=== PATIENT | male | born 1960 | race Caucasian/White ===

== ENCOUNTER → 2017-09-30 16:27 | Outpatient (CLI) | payer BC, SELFPAY ==
[2017-09-30 18:37] LABS: Anion Gap 11 (5-15); BUN 7 mg/dL (7-18); BUN/Creat Ratio 9.3 RATIO (10-20); Chloride 95 mmol/L (98-107); Cholesterol 201 mg/dL (200); Creatinine, Serum 0.76 mg/dL (0.70-1.30); EST Glomerular Filtration Rate 113 mL/min (>60); Est Glom Filt Rate - Afr Amer 137 mL/min (>60); Glucose 91 mg/dL (74-106); High Density Lipoprotein 80 mg/dL; Potassium 3.8 mmol/L (3.5-5.1); Sodium Level 129 mmol/L (136-145); Triglycerides 63 mg/dL; Very Low Density Lipoprotein 13 mg/dL (5-40)
== END ==
PROVIDERS: Family Provider Family Medicine; PCP Family Medicine; Visit Provider Family Medicine
DX: Z00.00 Encounter for general adult medical examination without abnormal findings (principal); Z12.5 Encounter for screening for malignant neoplasm of prostate
CPT/HCPCS: 36415; 80048; 80061; 84153; G0103

== ENCOUNTER → 2017-10-05 11:33 | Outpatient (CLI) | payer BC, SELFPAY ==
[2017-10-05 15:34] LABS: ALB/GLOB Ratio 1.3 RATIO (0.9-2.4); AST(SGOT) 29 U/L (15-37); Alanine Aminotransfer ALT/SGPT 30 U/L (16-61); Albumin, Serum 4.2 g/dL (3.2-5.0); Alkaline Phosphatase 63 U/L (45-117); Anion Gap 10 (5-15); BUN 9 mg/dL (7-18); BUN/Creat Ratio 10.4 RATIO (10-20); Calcium,Total 8.5 mg/dL (8.5-10.1); Chloride 95 mmol/L (98-107); Creatinine, Serum 0.86 mg/dL (0.70-1.30); EST Glomerular Filtration Rate 97 mL/min (>60); Est Glom Filt Rate - Afr Amer 117 mL/min (>60); Globulin 3.2 g/dL (2.2-4.2); Glucose 101 mg/dL (74-106); Potassium 4.1 mmol/L (3.5-5.1); Protein, Total 7.4 g/dL (6.4-8.2); Sodium Level 130 mmol/L (136-145)
[2017-10-05 20:58] LABS: Osmolality, Serum 270 mOsm/KG (275-295)
== END ==
PROVIDERS: Family Provider Family Medicine; PCP Family Medicine; Visit Provider Family Medicine
DX: E87.1 Hypo-osmolality and hyponatremia (principal)
CPT/HCPCS: 36415; 80053; 83930; 84443

== ENCOUNTER → 2017-10-13 10:02 | Outpatient (CLI) | payer BC, SELFPAY ==
[2017-10-13 13:05] LABS: Urine Sodium 95 mmol/L (Not Establ.)
[2017-10-13 13:14] LABS: Osmolality, Urine 405 mOsm/KG
== END ==
PROVIDERS: Family Provider Family Medicine; PCP Family Medicine; Visit Provider Family Medicine
DX: E87.1 Hypo-osmolality and hyponatremia (principal)
CPT/HCPCS: 83935; 84300

== ENCOUNTER → 2018-02-04 11:35 | Outpatient (CLI) | payer BC, SELFPAY ==
[2018-02-04 15:43] LABS: Anion Gap 7 (5-15); BUN 12 mg/dL (7-18); BUN/Creat Ratio 13.1 RATIO (10-20); Calcium,Total 8.6 mg/dL (8.5-10.1); Chloride 99 mmol/L (98-107); Creatinine, Serum 0.91 mg/dL (0.70-1.30); EST Glomerular Filtration Rate 91 mL/min (>60); Est Glom Filt Rate - Afr Amer 110 mL/min (>60); Glucose 99 mg/dL (74-106); Potassium 4.2 mmol/L (3.5-5.1); Sodium Level 132 mmol/L (136-145)
== END ==
PROVIDERS: Family Provider Family Medicine; PCP Family Medicine; Visit Provider Family Medicine
DX: E87.1 Hypo-osmolality and hyponatremia (principal)
CPT/HCPCS: 36415; 80048

== ENCOUNTER → 2018-03-07 11:27 | Outpatient (CLI) | payer BC, SELFPAY ==
[2018-03-07 15:42] LABS: Hematocrit 35.5 % (40-54); Hemoglobin 12.3 g/dl (13.0-16.5); Mean Corp Hgb Conc 34.6 g/gl (32-36); Mean Corpuscular Hgb 31.9 pg (27.0-32.0); Platelet Count 203 K/mm3 (150-450); RBC Distribution Width CV 12.3 % (11.6-14.6); RBC Distribution Width SD 41.3 fl (35.1-43.9); Red Blood Count 3.86 M/mm3 (4.6-6.2); White Blood Count 3.6 K/mm3 (4.4-11.0)
[2018-03-07 15:49] LABS: Scan Indicated on CBC? Y/N NO
[2018-03-07 16:05] LABS: Anion Gap 8 (5-15); BUN 9 mg/dL (7-18); BUN/Creat Ratio 11.1 RATIO (10-20); Calcium,Total 8.9 mg/dL (8.5-10.1); Chloride 98 mmol/L (98-107); Creatinine, Serum 0.81 mg/dL (0.70-1.30); EST Glomerular Filtration Rate 104 mL/min (>60); Est Glom Filt Rate - Afr Amer 126 mL/min (>60); Glucose 83 mg/dL (74-106); Potassium 4.2 mmol/L (3.5-5.1); Sodium Level 136 mmol/L (136-145)
[2018-03-07 16:09] LABS: Vitamin B12 231 pg/mL (211-911); Vitamin D,25 Hydroxy 20.4 ng/mL (29.95-100.01)
[2018-03-07 16:15] LABS: Osmolality, Serum 277 mOsm/KG (275-295)
== END ==
PROVIDERS: Family Provider Family Medicine; PCP Family Medicine; Visit Provider Family Medicine
DX: E87.1 Hypo-osmolality and hyponatremia (principal); R53.83 Other fatigue
CPT/HCPCS: 36415; 80048; 82306; 82607; 83930; 85027

== ENCOUNTER → 2022-04-28 | Outpatient (CLI) | payer BC, SELFPAY ==
--- NOTE | 2022-04-28 14:15 | RAD_ITS ---
STUDY: X-RAY - RIGHT SHOULDER REASON FOR EXAM: Male, 62 years old. Right shoulder pain. TECHNIQUE: 4 view(s) of the shoulder. COMPARISON: None. FINDINGS: There is mild degenerative arthrosis of the glenohumeral articulation. There is degenerative arthrosis of the acromioclavicular joint without inferior osseous spur formation. Normal acromion. Normal humeral head and visualized proximal humerus. The soft tissue structures are unremarkable. Normal visualized pulmonary apex. RAD/Shoulder min 2 Views IMPRESSION: Degenerative changes at the glenohumeral joint. Electronically Signed: Mehrdad Lynch MD at 15:36 EDT ,
== END | disposition home or self-care (01) ==
LOC: MTRAD 14:10
PROVIDERS: PCP Family Medicine; Referring Provider Family Medicine; Visit Provider Family Medicine
DX: M25.511 Pain in right shoulder (principal)
CPT/HCPCS: 73030

== ENCOUNTER → 2022-05-13 | Outpatient (CLI) | payer BC, SELFPAY ==
--- NOTE | 2022-05-13 07:12 | MRI_ITS ---
STUDY: MRI RIGHT SHOULDER REASON FOR EXAM: Right shoulder pain for 6 months. TECHNIQUE: Standardized fat and water weighted pulse sequences were obtained in all 3 orthogonal planes. COMPARISON: Radiographs 04/28/2022. FINDINGS: There is supraspinatus tendinosis and a full-thickness tear of the anterior supraspinatus tendon (T2 coronal images 15-17) measuring approximately 0.6 x 1.3 cm (length x width). There is infraspinatus tendinosis (T2 coronal images 9-11) without discrete tendon tear. There is attenuation of the subscapularis tendon (chronicity axial images 15, 16). Normal teres minor tendon. There is mild atrophy with mild partial fat replacement of the supraspinatus muscle (T2 axial images 6, 7). Normal infraspinatus muscle. There is atrophy with partial fat replacement of the subscapularis muscle (T2 axial image 14). There is atrophy with fat replacement of the teres minor muscle (T2 sagittal image 15). There is a small glenohumeral joint effusion. There is mild cystic change of the posterior aspect of the greater tuberosity. There is a tear with nonvisualization of the intracapsular long biceps tendon. There is degeneration of the superior labrum (proton-density coronal images 11, 12). Normal capsulo- ligamentous complex. There is acromioclavicular arthrosis without substantial undersurface osteophytes (T2 sagittal image 18). There is a Type II morphology (curved), with a neutral orientation. There is a small volume of subacromial-subdeltoid bursal fluid. There is thickening of the coracoacromial ligament (T2 sagittal image 14). There is atrophy with partial fat replacement of the deltoid muscle (T2 sagittal images 1-15). Normal trapezius muscle. MRI/Upper Ext Joint Only(Routine) IMPRESSION: Full-thickness tear and tendinosis of the supraspinatus tendon. Subscapularis tendinosis. Infraspinatus tendinosis. Atrophy of the supraspinatus, subscapularis, teres minor and deltoid muscles. Tear of the long biceps tendon. Degeneration of the superior labrum. Acromioclavicular arthrosis. Thickening of the coracoacromial ligament. Glenohumeral joint fluid communicating with the subacromial-subdeltoid bursa. Electronically Signed: Sylvester Vogt MD at 8:40 EDT ,
== END | disposition home or self-care (01) ==
PROVIDERS: PCP Family Medicine; Visit Provider Family Medicine
DX: M75.51 Bursitis of right shoulder (principal)
CPT/HCPCS: 73221

== ENCOUNTER 2022-07-20 11:21 | Outpatient (CLI) | payer BC, SELFPAY ==
[2022-07-20 13:08] LABS: ALB/GLOB Ratio 1.4 RATIO (0.9-2.4); AST(SGOT) 30 U/L (15-37); Alanine Aminotransfer ALT/SGPT 27 U/L (16-61); Albumin, Serum 4.2 g/dL (3.2-5.0); Alkaline Phosphatase 70 U/L (45-117); Anion Gap 6 (5-15); BUN 10 mg/dL (7-18); Calcium,Total 9.3 mg/dL (8.5-10.1); Chloride 95 mmol/L (98-107); Creatinine, Serum 0.71 mg/dL (0.70-1.30); EST Glomerular Filtration Rate 119 mL/min (>60); Est Glom Filt Rate - Afr Amer 144 mL/min (>60); Globulin 3.1 g/dL (2.2-4.2); Glucose 94 mg/dL (74-106); Potassium 4.2 mmol/L (3.5-5.1); Protein, Total 7.3 g/dL (6.4-8.2); Sodium Level 129 mmol/L (136-145)
== END 2022-07-20 23:59 | disposition home or self-care (01) ==
LOC: MFPLAB 11:25
PROVIDERS: PCP Family Medicine; Visit Provider Nurse Practitioner Family
DX: E87.1 Hypo-osmolality and hyponatremia (principal)
CPT/HCPCS: 36415; 80053

== ENCOUNTER → 2022-07-27 | Outpatient (CLI) | payer BC, SELFPAY ==
[2022-07-27 13:05] LABS: ALB/GLOB Ratio 1.3 RATIO (0.9-2.4); AST(SGOT) 21 U/L (15-37); Alanine Aminotransfer ALT/SGPT 21 U/L (16-61); Albumin, Serum 3.9 g/dL (3.2-5.0); Alkaline Phosphatase 66 U/L (45-117); Anion Gap 8 (5-15); BUN 9 mg/dL (7-18); BUN/Creat Ratio 11.5 RATIO (10-20); Calcium,Total 9.2 mg/dL (8.5-10.1); Chloride 97 mmol/L (98-107); Creatinine, Serum 0.78 mg/dL (0.70-1.30); EST Glomerular Filtration Rate 106 mL/min (>60); Est Glom Filt Rate - Afr Amer 129 mL/min (>60); Globulin 2.9 g/dL (2.2-4.2); Glucose 93 mg/dL (74-106); Potassium 4.1 mmol/L (3.5-5.1); Protein, Total 6.8 g/dL (6.4-8.2); Sodium Level 131 mmol/L (136-145)
== END | disposition home or self-care (01) ==
PROVIDERS: PCP Family Medicine; Visit Provider Nurse Practitioner Family
DX: E87.1 Hypo-osmolality and hyponatremia (principal)
CPT/HCPCS: 36415; 80053

== ENCOUNTER → 2022-08-03 | Outpatient (CLI) | payer BC, SELFPAY ==
[2022-08-03 10:21] LABS: ALB/GLOB Ratio 1.1 RATIO (0.9-2.4); AST(SGOT) 19 U/L (15-37); Alanine Aminotransfer ALT/SGPT 21 U/L (16-61); Albumin, Serum 3.9 g/dL (3.2-5.0); Alkaline Phosphatase 67 U/L (45-117); Anion Gap 9 (5-15); BUN 10 mg/dL (7-18); Calcium,Total 9.1 mg/dL (8.5-10.1); Chloride 98 mmol/L (98-107); Creatinine, Serum 0.83 mg/dL (0.70-1.30); EST Glomerular Filtration Rate 99 mL/min (>60); Est Glom Filt Rate - Afr Amer 120 mL/min (>60); Globulin 3.4 g/dL (2.2-4.2); Glucose 85 mg/dL (74-106); Potassium 4.2 mmol/L (3.5-5.1); Protein, Total 7.3 g/dL (6.4-8.2); Sodium Level 132 mmol/L (136-145)
== END | disposition home or self-care (01) ==
LOC: MFPLAB 08:29
PROVIDERS: PCP Family Medicine; Visit Provider Nurse Practitioner Family
DX: Z01.818 Encounter for other preprocedural examination (principal)
CPT/HCPCS: 36415; 80053

== ENCOUNTER → 2022-08-25 | Outpatient (CLI) | payer BC, SELFPAY ==
[2022-08-25 10:54] LABS: ALB/GLOB Ratio 1.2 RATIO (0.9-2.4); AST(SGOT) 22 U/L (15-37); Alanine Aminotransfer ALT/SGPT 26 U/L (16-61); Albumin, Serum 3.8 g/dL (3.2-5.0); Alkaline Phosphatase 76 U/L (45-117); Anion Gap 10 (5-15); BUN 10 mg/dL (7-18); BUN/Creat Ratio 13.3 RATIO (10-20); Chloride 99 mmol/L (98-107); Creatinine, Serum 0.75 mg/dL (0.70-1.30); EST Glomerular Filtration Rate 111 mL/min (>60); Est Glom Filt Rate - Afr Amer 135 mL/min (>60); Globulin 3.3 g/dL (2.2-4.2); Glucose 88 mg/dL (74-106); Protein, Total 7.1 g/dL (6.4-8.2); Sodium Level 134 mmol/L (136-145)
== END | disposition home or self-care (01) ==
LOC: MFPLAB 09:10
PROVIDERS: PCP Family Medicine; Visit Provider Nurse Practitioner Family
DX: R79.89 Other specified abnormal findings of blood chemistry (principal)
CPT/HCPCS: 36415; 80053

== ENCOUNTER → 2022-09-01 | Outpatient (CLI) | payer BC, SELFPAY ==
[2022-09-01 16:14] LABS: ALB/GLOB Ratio 1.2 RATIO (0.9-2.4); AST(SGOT) 21 U/L (15-37); Alanine Aminotransfer ALT/SGPT 26 U/L (16-61); Albumin, Serum 3.8 g/dL (3.2-5.0); Alkaline Phosphatase 73 U/L (45-117); BUN 11 mg/dL (7-18); BUN/Creat Ratio 13.5 RATIO (10-20); Calcium,Total 8.8 mg/dL (8.5-10.1); Creatinine, Serum 0.82 mg/dL (0.70-1.30); EST Glomerular Filtration Rate 102 mL/min (>60); Est Glom Filt Rate - Afr Amer 123 mL/min (>60); Globulin 3.3 g/dL (2.2-4.2); Glucose 82 mg/dL (74-106); Protein, Total 7.1 g/dL (6.4-8.2); Sodium Level 136 mmol/L (136-145)
[2022-09-01 16:15] LABS: Anion Gap 11 (5-15); Chloride 100 mmol/L (98-107)
== END | disposition home or self-care (01) ==
LOC: MTLAB 11:23
PROVIDERS: PCP Family Medicine; Referring Provider Nurse Practitioner Family; Visit Provider Nurse Practitioner Family
DX: R79.89 Other specified abnormal findings of blood chemistry (principal)
CPT/HCPCS: 36415; 80053

== ENCOUNTER 2022-09-02 06:07 | Day surgery (SDC) | payer BC, SELFPAY ==
[2022-07-16 14:57] LABS: Hematocrit 37.1 % (40-54); Mean Corpuscular Hgb 32.9 pg (27.0-32.0); Mean Corpuscular Volume 93.9 fL (80-94); Mean Platelet Vol. 8.3 fl (6.2-12.0); Platelet Count 253 K/mm3 (150-450); RBC Distribution Width CV 11.9 % (11.6-14.6); Red Blood Count 3.95 M/mm3 (4.6-6.2); White Blood Count 5.2 K/mm3 (4.4-11.0)
[2022-07-16 15:06] LABS: Partial Thromboplast Time 33.8 Seconds (24.1-36.2); Prothrombin Time (Protime)PT. 12.8 SECONDS (11.7-14.9)
[2022-07-16 15:30] LABS: Anion Gap 9 (5-15); BUN 10 mg/dL (7-18); BUN/Creat Ratio 12.9 RATIO (10-20); Calcium,Total 8.9 mg/dL (8.5-10.1); Chloride 92 mmol/L (98-107); Creatinine, Serum 0.78 mg/dL (0.70-1.30); EST Glomerular Filtration Rate 107 mL/min (>60); Est Glom Filt Rate - Afr Amer 130 mL/min (>60); Glucose 110 mg/dL (74-106); Potassium 4.3 mmol/L (3.5-5.1); Sodium Level 127 mmol/L (136-145)
[2022-07-16 15:34] LABS: AST(SGOT) 28 U/L (15-37); Alanine Aminotransfer ALT/SGPT 27 U/L (16-61); Albumin, Serum 3.9 g/dL (3.2-5.0); Alkaline Phosphatase 76 U/L (45-117); Bilirubin, Direct 0.16 mg/dL (0.00-0.30); Globulin 3.6 g/dL (2.2-4.2); Protein, Total 7.5 g/dL (6.4-8.2)
[2022-09-02] MEDS: Lactated Ringers 1,000 ML 15 ML IV ×2 (06:20→09:31)
[2022-09-02 06:30] VITALS: BP 131/75; PULSE 66; RESP 18; TEMP 36.2; O2SAT 100; BMI 26.9
--- NOTE | 2022-09-02 07:03 | PCM.HP.STD ---
HPI - General HPI Narrative ALEYDA MONGE, is a 62 M who presents for right shoulder arthroscopy, SAD and RCR. OK to proceed. No changes to h and P. Sodium WNL. Right shoulder marked. Going to proceed with pre op block. RAB discussed, and recovery post op in sling with pendulums. Narcotic counselling. No allergies. MR#: [id number] Acct: [id number] Name:? ALEYDA MONGE Rep #: [id number] : 1960 ? ? Provider: Dr. Freddie Golden MD Age/Sex:? 62/M ? ? [place] [facility] [place] Status: Signed Intake Intake Visit Reasons:?RIGHT SHOULDER Allergies No Known Allergies Allergy (Verified 06/15/22 08:29) Medications loratadine 10 mg tablet (Allergy Relief (loratadine)) 10 mg PO DAILY 05/22/22 [History Confirmed 06/15/22] pseudoephedrine HCl 30 mg capsule (abuse-resistant) (Nasal Decongestant (pseudoephedrine)) 30 mg PO ONCE 05/22/22 [History Confirmed 06/15/22] PFSH Medical History? Arthrosis of right acromioclavicular joint Internal impingement of right shoulder Labral tear of long head of right biceps tendon Right rotator cuff tear HPI RIGHT SHOULDER Details: Parts of this documentation were recorded by a scribe, this documentation accurately reflects the service provided and the decisions made by me, Dr. Freddie Golden MD 06/15/22 0811. ALEYDA MONGE is a 62 year old M here today for follow right shoulder pain rotator cuff tear and pre-existing long head of biceps tear.? Last time we spoke about different options for him including formal physical therapy injections and surgery.? He is here with I believe his daughter who I talked to on the phone last visit.? He had some questions about the recovery and surgical process as well as the timeline for getting the surgery done.? He would like to go ahead with surgical repair of his rotator cuff tear.? He had some questions about bone spurs as I believe he said brother had the same operation. Ortho Exam General General: Yes no acute distress Neurologic: Yes alert and Yes oriented x3 Psychologic: Yes reasonable and appropriate Right Shoulder Skin/Wound: Yes CDI, No ecchymosis, No erythema and No swelling Testing: Positive Hawkin's, Neer's, AROM-Forward Elevation 0-180 and AROM-External Rotation at side 0-60; Negative TTP AC Joint, Drop Arm or Sulcus Sign SHOULDER: Negative cross body adduction test.? His strength in forward elevation 4+/5. Supplemental Info STUDY: ? MRI RIGHT SHOULDER REASON FOR EXAM: Right shoulder pain for 6 months. TECHNIQUE: ? Standardized fat and water weighted pulse sequences were obtained in all 3 orthogonal planes. COMPARISON: ? Radiographs 04/28/2022. FINDINGS: There is supraspinatus tendinosis and a full-thickness tear of the anterior supraspinatus tendon (T2 coronal images 15-17) measuring approximately 0.6 x 1.3 cm (length x width). There is infraspinatus tendinosis (T2 coronal images 9-11) without discrete tendon tear. There is attenuation of the subscapularis tendon (chronicity axial images 15, 16).? Normal teres minor tendon. There is mild atrophy with mild partial fat replacement of the supraspinatus muscle (T2 axial images 6, 7).? Normal infraspinatus muscle. There is atrophy with partial fat replacement of the subscapularis muscle (T2 axial image 14).? There is atrophy with fat replacement of the teres minor muscle (T2 sagittal image 15). There is a small glenohumeral joint effusion.? There is mild cystic change of the posterior aspect of the greater tuberosity.? There is a tear with nonvisualization of the intracapsular long biceps tendon.? There is degeneration of the superior labrum (proton-density coronal images 11, 12). Normal capsulo- ligamentous complex. There is acromioclavicular arthrosis without substantial undersurface osteophytes (T2 sagittal image 18).? There is a Type II morphology (curved), with a neutral orientation. There is a small volume of subacromial-subdeltoid bursal fluid. There is thickening of the coracoacromial ligament (T2 sagittal image 14). There is atrophy with partial fat replacement of the deltoid muscle (T2 sagittal images 1-15).? Normal trapezius muscle. MRI/Upper Ext? Joint Only(Routine) IMPRESSION: Full-thickness tear and tendinosis of the supraspinatus tendon. ? Subscapularis tendinosis. ? Infraspinatus tendinosis. ? Atrophy of the supraspinatus, subscapularis, teres minor and deltoid muscles. ? Tear of the long biceps tendon. ? Degeneration of the superior labrum. ? Acromioclavicular arthrosis. ? Thickening of the coracoacromial ligament. ? Glenohumeral joint fluid communicating with the subacromial-subdeltoid bursa. Coding Level of Care Code Off vis,est,level 4 Diagnoses Internal impingement of right shoulder? M75.41 Arthrosis of right acromioclavicular joint? M19.011 Right rotator cuff tear? M75.101 Time Spent (min) 30 Assessment and Plan Assessment and Plan (1) Internal impingement of right shoulder: ?Status:?Acute (2) Arthrosis of right acromioclavicular joint: ?Status:?Acute (3) Right rotator cuff tear: ?Status:?Acute ?Plan: 62-year-old man with a right shoulder rotator cuff tear full-thickness partial width.? He also seems to have a complete rupture of the long head of the biceps AC joint arthrosis but no pain from that part of the shoulder.? Again discussed his options he would like to go ahead with right shoulder arthroscopy, subacromial decompression for a type II acromion as well as rotator cuff repair.? We signed the consent form for that as well as possible need for blood products.? He is otherwise healthy I will not send for preoperative medical consultation now however I will order screening blood work and EKG.? He understands and no further questions and wishes to proceed. The pros and cons risks and benefits were discussed with the patient including but not limited to infection, pain, stiffness, bleeding, damage to surrounding structures, neurovascular injury, recurrence or retear, failure or wear of hardware or fixation, instability, fracture, deep vein thrombosis and pulmonary embolism, anesthetic risks, patient dissatisfaction, need for further surgery and other risks.? Patient understood and wished to proceed with surgery, and signed the informed consent documentation.? FORMERLY [facility], [facility] Medical History (Updated 08/26/22 @ 10:07 by Bridgette Amado) Alcohol use Arthrosis of right acromioclavicular joint Dietary restriction Excessive bleeding Internal impingement of right shoulder Labral tear of long head of right biceps tendon Migraine headache Non-smoker Right rotator cuff tear Wears glasses Wears partial dentures Home Medications loratadine 10 mg tablet (Allergy Relief (loratadine)) 10 mg PO DAILY 05/22/22 [History Last Taken Unknown] Allergy/AdvReac Type Severity Reaction Status Date / Time No Known Allergies Allergy Verified 09/02/22 06:30 Surgical History History of carpal tunnel surgery of left wrist History of carpal tunnel surgery of right wrist Social History Smoking Status: Never smoker Vital Signs Vital Signs Vital Signs: 09/02/22 06:30 09/02/22 06:30 Temperature 97.1 F L Temperature Source Temporal Pulse Rate 66 Respiratory Rate 18 Respiratory Pattern Normal Blood Pressure 131/75 H Blood Pressure Mean 93 Blood Pressure Source Monitor Blood Pressure Position Semi-Fowlers Blood Pressure Location Right Arm Pulse Ox 100 Oxygen Delivery Method Room Air Weight Weight: 187 lb 6.287 oz Body Mass Index (BMI) 26.9 Results Lab / Micro Data Result Diagrams: 07/16/22 14:25 07/16/22 14:25
[2022-09-02] MEDS: Cefazolin 2 GM in 0.9% Normal Saline 100 ML IV (07:30)
--- NOTE | 2022-09-02 09:12 | OP.PCM_ITS ---
Problems Associated Problem List Diagnoses (1) Right rotator cuff tear: (2) Internal impingement of right shoulder: (3) Labral tear of long head of right biceps tendon: Report of Operation Date of Procedure: 09/02/22 Pre-Operative Diagnosis: Right shoulder impingement and rotator cuff tear Post-Operative Diagnosis: Same Surgery/Procedure Performed:: Right shoulder arthroscopy subacromial decompression rotator cuff repair Surgeon: Freddie Golden Type of Anesthesia: Block,Regional and General Anesthesiologist: Christian Rockwell Estimated Blood Loss (mL): 100 Description of Procedure: Patient brought to the operating room theater. Placed supine on the table. General anesthesia induced. 2 g IV Ancef administered prior to start of the case. Transferred right side up lateral decubitus beanbag positioner axillary roll placed. All bony prominences padded. SCDs on the legs. Upper extremity prepped and draped in the usual sterile fashion with chlorhexidine-based prep solution allowing over 3 minutes drying time prior to draping. Arm in 35 degrees of abduction with 10 pounds of inline traction. Preoperative timeout performed to confirm the site patient and the surgery. Began by inserting the arthroscope into the intra-articular portion of the shoulder through a standard posterior arthroscopy portal. Did a diagnostic arthroscopy. There is obvious area of full-thickness tearing at the anterior margin of the supraspinatus tendon. Infraspinatus as well as subscapularis Normal. Made a standard anterior portal inside-out spinal needle localization through the rotator interval. Cartilage on the glenoid and humeral head were normal. Biceps long head was already torn missing. There is a minor to moderate amount of synovitis superiorly posteriorly as well as inferiorly above the equator of the glenoid so I gently debrided this and use electrocautery to remove the synovitis. No loose body. Axillary recess was entered as well. Normal bare area. Then inserted the scope into the subacromial space. Performed bursectomy. There is a minor to moderate amount of bursitis that I removed. I created an accessory lateral portal through spinal needle localization. Performed a subacromial decompression as well as takedown of the CA ligament. The decompression was performed to flat margins for a width of approximately 5 mm. Placed an Arthrex 7 x 7 cannula laterally. Identified again the tear. [place]-shaped tear mostly towards the mid to anterior one third of the supraspinatus. Assess mobility somewhat poor mobility. Performed small release at the anterior margin of the tendon as well as just superior to the glenoid ensuring to not stray more than 5 mm beyond that. Gently debrided the edges of the tear. It measured approximately 1.5 cm from anterior to posterior and full uncoverage 2 cm from medial to lateral of the footprint. I cleaned up any antonette ining soft tissue from the footprint. I used the Arthrex power pick in a number of different locations of the greater tuberosity to stimulate healing. I would generally classify as a medium sized tear. Too small for double row repair therefore elected to perform a speed fix type repair. I passed a fiber tape on either side of the tear in an inverted horizontal mattress fashion. I then used a fiber link suture in the mid aspect of the tear medial to the fiber tape to create a rip stop configuration. I then had 3 free suture ends which I passed into a 4.75 mm swivel lock anchor. I used the tap at the lateral margin of the footprint down to the second line. I then inserted the anchor to create a repair in that area slightly making a posterior to anterior shift of the posterior margin of the tear. There is a very small dog ear as well as a very small area anteriorly that had some delamination and longitudinal tearing which I then used the stay suture to fixate down with a simple suture configuration with knotless repair in that area. Case terminated arthroscope withdrawn. Subcutaneous tissue closed with 3-0 Monocryl sutures skin cleaned with wet and dry dressing followed application of Steri-Strips Adaptic 4 x 4 gauze abdominal pad dressing cloth tape in a sling abduction pillow sling for the upper extremity. Patient woken up from the general anesthetic transferred off the operating room table and taken to postanesthetic care unit in stable condition. All sponge needle instrument counts were correct no complications. Plan for the patient discharged home when they are comfortable per day surgery criteria follow-up in the office in 2 days time and immediate pendulum exercises as well as hand wrist and elbow exercises. Complications none Admit VTE Documentation VTE Present on Admission: No VTE Mechan Device Prophylaxis: SCD's VTE Pharm Prophylaxis ordered?: No Reason prophylaxis not ordered:: Treatment Not Indicated Procedures Musculoskeletal 20xxx-29xxx: Other Procedure See Report
[2022-09-02 09:21] VITALS: BP 118/71; BP 131/75; PULSE 74; RESP 17; TEMP 36.1; O2SAT 100
--- NOTE | 2022-09-02 09:22 | DCINST_ITS ---
Discharge Instructions Diet Discharge Diet: No restrictions Activity Discharge Activity: May Not Drive Ice area for (Minutes): 10 Lifting Restrictions: immediate pendulum exercises as well as hand wrist and elbow exercises Keep extremity elevated above heart level: Operative Extremity Additional Activity Instructions:: immediate pendulum exercises as well as hand wrist and elbow exercises Dressing / Incision Call your doctor if your incision/area has: Continuous Slow Oozing, Sudden Increased Bleeding, Increased Pain/ Swelling, Increased Redness, Foul Smelling Discharge and Swelling at the incision site Remove Dressing in: leave in place till F/U Follow Up Care Please Follow Up With: Freddie Golden MD When: 2 days Test Results: Test results from this visit will be discussed in further detail at your follow- up appointment, if applicable. Discharge Plan Admission Attending Provider: Freddie Golden Primary Care Provider: Dane Blackman Instructions Patient Instructions: After Shoulder Arthroscopy Discharge Orders/Prescriptions Prescriptions: New oxycodone-acetaminophen [Endocet] 5-325 mg tablet 1 tab PO Q4H MDD 6 PRN (Reason: pain) 7 Days Qty: 30 0RF No Action loratadine [Allergy Relief (loratadine)] 10 mg tablet 10 mg PO DAILY Referrals / Follow Up: Dane Blackman MD [Primary Care Provider] - Freddie Golden MD [Med Staff - Active Staff] - Disposition Disposition (needs filled in before D/C Order can be placed): Home, Self Care
[2022-09-02 09:30] VITALS: BP 113/51; BP 131/75; PULSE 64; RESP 16; O2SAT 99
[2022-09-02 09:45] VITALS: BP 131/75; BP 133/62; PULSE 65; RESP 16; O2SAT 97
[2022-09-02 10:00] VITALS: BP 111/71; BP 131/75; PULSE 59; RESP 16; TEMP 35.5; O2SAT 93
[2022-09-02] MEDS: 0.9% Normal Saline (Pres. free 10 ML Vial (10:55)
[2022-09-02 11:20] VITALS: BP 130/64; BP 131/75; PULSE 59; RESP 18; TEMP 36; O2SAT 96
[2022-09-02] MEDS: Neomycin/Bacitracin/Polymyxin Ointment TOPICAL (11:42)
== END 2022-09-02 11:44 | disposition home or self-care (01) ==
LOC: SDC 06:07 → AC 06:08
PROVIDERS: Anesthesiology; PCP Family Medicine; Referring Provider Orthopaedic Surgery Sports Medicine; Visit Provider Orthopaedic Surgery Sports Medicine
PROC: (CPT 29805; principal; 2022-09-02 07:10)
DX: M19.011 Primary osteoarthritis, right shoulder (principal); M75.41 Impingement syndrome of right shoulder; S46.111A Strain of muscle, fascia and tendon of long head of biceps, right arm, initial encounter; M75.101 Unspecified rotator cuff tear or rupture of right shoulder, not specified as traumatic; Z97.3 Presence of spectacles and contact lenses
CPT/HCPCS: 29827; 29826; 01630; 36415; 80048; 80076; 85027; 85610; 85730; 93005; J7120; J3490

== ENCOUNTER → 2022-10-20 | Outpatient (CLI) | payer BC, SELFPAY ==
[2022-10-20 10:41] LABS: Anion Gap 7 (5-15); BUN 7 mg/dL (7-18); BUN/Creat Ratio 10.3 RATIO (10-20); Calcium,Total 9.1 mg/dL (8.5-10.1); Chloride 96 mmol/L (98-107); Cholesterol 185 mg/dL (200); Creatinine, Serum 0.68 mg/dL (0.70-1.30); EST Glomerular Filtration Rate 126 mL/min (>60); Est Glom Filt Rate - Afr Amer 152 mL/min (>60); Glucose 89 mg/dL (74-106); High Density Lipoprotein 57 mg/dL; PSA,Total - Annual Screen 0.36 ng/mL (0.00-4.00); Potassium 4.3 mmol/L (3.5-5.1); Sodium Level 130 mmol/L (136-145); Thyroid Stim Hormone (TSH) 2.44 uIU/mL (0.358-3.74); Triglycerides 49 mg/dL; Very Low Density Lipoprotein 10 mg/dL (5-40)
[2022-10-20 10:44] LABS: Osmolality, Serum 275 mOsm/KG (280-301)
== END | disposition home or self-care (01) ==
LOC: MFPLAB 08:29
PROVIDERS: PCP Family Medicine; Referring Provider Family Medicine; Visit Provider Family Medicine
DX: Z12.5 Encounter for screening for malignant neoplasm of prostate (principal); E87.1 Hypo-osmolality and hyponatremia; Z13.220 Encounter for screening for lipoid disorders
CPT/HCPCS: 36415; 80048; 80061; 83930; 84153; 84443; G0103

== ENCOUNTER 2023-01-14 08:00 | Outpatient (RCR) | payer BC, SELFPAY ==
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
--- NOTE | 2022-10-13 09:31 | HP.PTREVAL ---
Dr. Freddie Golden MD, It has been my pleasure to treat ALEYDA MONGE over the last 8 visits for Right RTC Repair 09/02/22. Please see the progress note below for an update on the physical therapy plan of care! Subjective: Patient reports that up until last night it was great- had a normal day yesterday- did two rounds of his exercises- he went to lock the door last night he reached and felt a big pain and now its a little sore. 10/10 when he reached but its normally a 4/10. Objective/Function: Posture: FH, RS- mild guarding of the right UE- no sling Observation: incisions healed Palpation: not tender to touch ROM: Elbow/Wrist/Hand: WFL Cervical Spine: WFL, Shoulder AAROM: WFL in all planes, AROM: flexion: 70 degrees, Abd: 50 degrees ER: 50 degrees IR: belt line Strength: Scap: fair, Isometric: 4+/5 Plan Plan: 10/13/22: Continue with POC 2x a week for 6 weeks for progression through protocol per MD. Right RTC Repair 09/02/22- MD Script States: d/c sling at 2 weeks (09/16/22)- PROM and AAROM week 2-6 then progress through AROM and Strength at 6 weeks. HEP Given IE: Posture, Scap Retractions, Pendulums, Elbow AROM, Banquet Stewardess Balance/Gait/Functional tests - Balance/Special Test Scores Quick DASH Score: 45.4525 Goals Goal 1:: Patient will be I with HEP and progression Goal Time Frame: 4-6 Weeks Goal Progress: Progressing Goal 2:: Patient will demo full PROM-AROM of the right shoulder per protocol Goal Time Frame: 12-16 Weeks Goal Progress: Progressing Goal 3:: Patient will maintain proper posture t/o tx session to demo increased scap s/s per protocol Goal Time Frame: 12-16 Weeks Goal Progress: Progressing Goal 4:: Patient will report 80% improvement Goal Time Frame: 12-16 Weeks Goal Progress: Progressing Anticipated Interventions Patient/Client Instruction: Educate patient on: Benefits of Fitness Program Therapeutic Exercise to Include: Strength training, Endurance training, Coordination, Agility training, Body mechanics, Postural training, Flexibilty training, Neuromotor development, Passive ROM, Active ROM, Scapular Strength/Stabilization For the Purpose of:: To improve muscle performance and motor function TENS: Yes Cryotherapy (ice pack, ice massage): Yes Thermo therapy (hot pack): Yes Ultrasound (thermal/non thermal): No Please do not hesitate to contact me at [phone] by phone or if you have questions or concerns regarding this new plan of care! Sincerely, KRISTIN GrangerT
--- NOTE | 2023-01-14 09:14 | HP.PTREVAL ---
Dr. Freddie Golden MD, It has been my pleasure to treat ALEYDA MONGE over the last 32 visits for Right RTC Repair 09/02/22. Please see the progress note below for an update on the physical therapy plan of care! Subjective: Pt. reports overall doing much better. Pt. reports being consistent with HEP. HE is back to doing some kayaking which has been doing well. Pt. is to follow up with physician, but has not scheduled appt yet. Objective/Function: Pt. had good passive motion with close to full AROM. He does have some difficulty with full flexion, but does get there with repetition. MMT: Pt. had still some marked weakness with abduction and with flexion. She is progressing. He has a good strengthening program. At this point in time he is going to follow up with physician and do his exercises with focus on end range stretching and progressive strengthening I at home. Plan Plan: Pt. is to continue with strengthening at home, follow up with physician then see PT in ~ 1month after strengthening for a month. Pt. can schedule differently if physician requests. Balance/Gait/Functional tests - Balance/Special Test Scores Quick DASH Score: 22.7250 Goals Goal 1:: Patient will be I with HEP and progression Goal Time Frame: 4-6 Weeks Goal Progress: Progressing Goal 2:: Patient will demo full PROM-AROM of the right shoulder per protocol Goal Time Frame: 12-16 Weeks Goal Progress: Goal Met Goal 3:: Patient will maintain proper posture t/o tx session to demo increased scap s/s per protocol Goal Time Frame: 12-16 Weeks Goal Progress: Goal Met Goal 4:: Patient will report 80% improvement Goal Time Frame: 12-16 Weeks Goal Progress: Progressing Anticipated Interventions Patient/Client Instruction: Educate patient on: Benefits of Fitness Program Therapeutic Exercise to Include: Strength training, Endurance training, Coordination, Agility training, Body mechanics, Postural training, Flexibilty training, Neuromotor development, Passive ROM, Active ROM, Scapular Strength/Stabilization For the Purpose of:: To improve muscle performance and motor function TENS: Yes Cryotherapy (ice pack, ice massage): Yes Thermo therapy (hot pack): Yes Ultrasound (thermal/non thermal): No Please do not hesitate to contact me at [phone] by phone or if you have questions or concerns regarding this new plan of care! Sincerely, KRISTIN FamT
== END 2023-01-14 19:00 | disposition home or self-care (01) ==
LOC: PT 08:00
PROVIDERS: PCP Family Medicine; Referring Provider Orthopaedic Surgery Sports Medicine; Visit Provider Orthopaedic Surgery Sports Medicine
DX: M75.101 Unspecified rotator cuff tear or rupture of right shoulder, not specified as traumatic (principal)
CPT/HCPCS: 97110; 97140; 97162; 97164

== ENCOUNTER → 2023-07-28 | Outpatient (CLI) | payer BC, SELFPAY ==
[2023-07-28 15:36] LABS: Hematocrit 32.8 % (40-54); Hemoglobin 11.2 g/dL (13.0-16.5); Mean Corp Hgb Conc 34.1 g/dL (32-36); Mean Corpuscular Hgb 32.7 pg (27.0-32.0); Mean Corpuscular Volume 95.9 fL (80-94); Mean Platelet Vol. 9.3 fl (6.2-12.0); Platelet Count 245 K/mm3 (150-450); RBC Distribution Width CV 11.9 % (11.6-14.6); RBC Distribution Width SD 42.1 fl (35.1-43.9); Red Blood Count 3.42 M/mm3 (4.6-6.2); White Blood Count 4.5 K/mm3 (4.4-11.0)
[2023-07-28 16:21] LABS: Urine Sodium 44 mmol/L (Not Establ.)
[2023-07-28 16:23] LABS: Vitamin B12 256 pg/mL (211-911); Vitamin D,25 Hydroxy 32.8 ng/mL
[2023-07-28 16:27] LABS: Anion Gap 6 (5-15); BUN 14 mg/dL (7-18); BUN/Creat Ratio 21.9 RATIO (10-20); Calcium,Total 8.5 mg/dL (8.5-10.1); Chloride 97 mmol/L (98-107); Creatinine, Serum 0.64 mg/dL (0.70-1.30); EST Glomerular Filtration Rate 134 mL/min (>60); Est Glom Filt Rate - Afr Amer 163 mL/min (>60); Glucose 82 mg/dL (74-106); Iron 82 ug/dL (65-175); Sodium Level 130 mmol/L (136-145); Thyroid Stim Hormone (TSH) 2.88 uIU/mL (0.358-3.74)
[2023-07-28 16:55] LABS: Osmolality, Serum 268 mOsm/KG (280-301); Osmolality, Urine 372 mOsm/KG
== END | disposition home or self-care (01) ==
LOC: MFPLAB 13:38
PROVIDERS: PCP Family Medicine; Visit Provider Family Medicine
DX: E87.1 Hypo-osmolality and hyponatremia (principal); R53.83 Other fatigue
CPT/HCPCS: 36415; 80048; 82306; 82607; 83540; 83930; 83935; 84300; 84403; 84443; 85027

== ENCOUNTER → 2023-08-03 | Outpatient (CLI) | payer BC, SELFPAY | END | disposition home or self-care (01) | LOC: MFPLAB 08:23 | PROVIDERS: PCP Family Medicine; Visit Provider Family Medicine | DX: E87.1 Hypo-osmolality and hyponatremia (principal) | CPT/HCPCS: 36415; 82533 ==

== ENCOUNTER → 2023-09-06 | Outpatient (CLI) | payer BC, SELFPAY ==
--- NOTE | 2023-09-06 08:45 | MRI_ITS ---
STUDY: MRI RIGHT SHOULDER REASON FOR EXAM: Male, 63 years old. Pain, weakness after surgery. TECHNIQUE: Standardized fat and water weighted pulse sequences were obtained in all 3 orthogonal planes. COMPARISON: Right shoulder MRI dated 05/13/2022. FINDINGS: There are postoperative changes related to rotator cuff repair surgery. There is supraspinatus tendinosis with a 1.6 x 0.5 cm high-grade partial thickness articular surface (if not full-thickness) tear of the anterior supraspinatus tendon (coronal T2 series 6 images 11-13; sagittal T2 series 7 images 4-6). There is persistent infraspinatus and subscapularis tendinosis. Normal teres minor tendon. There is persistent mild atrophy with mild partial fat replacement of the supraspinatus muscle. Normal infraspinatus muscle. There is persistent moderate atrophy with partial fat replacement of the subscapularis muscle. There is persistent severe atrophy with fat replacement of the teres minor muscle. There is a small glenohumeral joint effusion. There is mild cystic change of the posterior aspect of the greater tuberosity. There is a chronic tear with nonvisualization of the intracapsular long biceps tendon. There is persistent degeneration of the superior labrum. Normal capsulo-ligamentous complex. There is mild acromioclavicular arthrosis. There is a Type II morphology (curved), with a neutral orientation. There is a small volume of subacromial-subdeltoid bursal fluid. There is mild atrophy with partial fat replacement of the deltoid muscle. Normal trapezius muscle. MRI/Upper Ext Joint Only(Routine) IMPRESSION: Supraspinatus tendinosis with a 1.6 x 0.5 cm high-grade partial thickness articular surface (if not full-thickness) tear of the anterior supraspinatus tendon. Persistent infraspinatus and subscapularis tendinosis. Chronic atrophy of the supraspinatus, subscapularis, teres minor and deltoid muscles. Chronic ear of the long biceps tendon. Persistent degeneration of the superior labrum. Mild acromioclavicular arthrosis. Electronically Signed: Hussein Arrington MD at 12:41 EST Reading Location ID and State: [facility] / [place] , Service support ,
== END | disposition home or self-care (01) ==
LOC: MRI 08:13
PROVIDERS: PCP Family Medicine; Referring Provider Orthopaedic Surgery Sports Medicine; Visit Provider Orthopaedic Surgery Sports Medicine
DX: M75.101 Unspecified rotator cuff tear or rupture of right shoulder, not specified as traumatic (principal)
CPT/HCPCS: 73221

== ENCOUNTER → 2023-11-03 | Outpatient (CLI) | payer BC, SELFPAY ==
[2023-11-03 10:42] LABS: Urine Sodium 23 mmol/L (Not Establ.)
[2023-11-03 10:59] LABS: ALB/GLOB Ratio 0.9 RATIO (0.9-2.4); AST(SGOT) 27 U/L (15-37); Alanine Aminotransfer ALT/SGPT 24 U/L (16-61); Albumin, Serum 3.6 g/dL (3.2-5.0); Alkaline Phosphatase 89 U/L (45-117); Anion Gap 7 (5-15); BUN 12 mg/dL (7-18); BUN/Creat Ratio 14.4 RATIO (10-20); Calcium,Total 8.9 mg/dL (8.5-10.1); Chloride 95 mmol/L (98-107); Creatinine, Serum 0.83 mg/dL (0.70-1.30); EST Glomerular Filtration Rate 99 mL/min (>60); Est Glom Filt Rate - Afr Amer 120 mL/min (>60); Glucose 84 mg/dL (74-106); Potassium 4.4 mmol/L (3.5-5.1); Protein, Total 7.6 g/dL (6.4-8.2); Sodium Level 128 mmol/L (136-145)
[2023-11-03 11:21] LABS: Osmolality, Serum 266 mOsm/KG (280-301); Osmolality, Urine 330 mOsm/KG
[2023-11-05 22:07] LABS: Renin, Plasma 0.423 ng/mL/hr (0.167-5.380)
== END | disposition home or self-care (01) ==
PROVIDERS: PCP Family Medicine; Visit Provider Internal Medicine Endocrinology, Diabetes & Metabolism
DX: E87.1 Hypo-osmolality and hyponatremia (principal)
CPT/HCPCS: 36415; 80053; 82533; 83930; 83935; 84244; 84300

== ENCOUNTER → 2023-11-29 | Outpatient (CLI) | payer BC, SELFPAY ==
[2023-11-29 10:35] LABS: Urine Sodium 51 mmol/L (Not Establ.)
[2023-11-29 10:40] LABS: Anion Gap 8 (5-15); BUN 13 mg/dL (7-18); BUN/Creat Ratio 15.3 RATIO (10-20); Calcium,Total 8.8 mg/dL (8.5-10.1); Chloride 98 mmol/L (98-107); Creatinine, Serum 0.85 mg/dL (0.70-1.30); EST Glomerular Filtration Rate 96 mL/min (>60); Est Glom Filt Rate - Afr Amer 117 mL/min (>60); Glucose 79 mg/dL (74-106); Potassium 4.3 mmol/L (3.5-5.1); Sodium Level 131 mmol/L (136-145)
[2023-11-29 11:50] LABS: Osmolality, Urine 295 mOsm/KG
== END | disposition home or self-care (01) ==
PROVIDERS: PCP Family Medicine; Referring Provider Internal Medicine Endocrinology, Diabetes & Metabolism; Visit Provider Internal Medicine Endocrinology, Diabetes & Metabolism
DX: E87.1 Hypo-osmolality and hyponatremia (principal)
CPT/HCPCS: 36415; 80048; 83935; 84300

== ENCOUNTER → 2023-12-31 | Outpatient (CLI) | payer BC, SELFPAY ==
--- NOTE | 2023-12-31 08:42 | CT_ITS ---
STUDY: CT CHEST WITH CONTRAST REASON FOR EXAM: Male, 63 years old. Looking for possible cause of SIADH -- rule out malignancy and disease of the chest RADIATION DOSAGE (If Supplied By Facility): CTDIvol = ( 13.80 ) mGy, DLP = ( 425.86 ) mGycm TECHNIQUE: Transaxial imaging was performed following intravenous administration of IV 100mL Isovue-300. Multiplanar coronal and sagittal images were reformatted. Individualized dose optimization techniques were used for this CT. COMPARISON: No relevant priors. FINDINGS: CHEST Bilateral apical scarring more prominent in the right lung apex. There is evidence of a calcified bilateral pleural plaques more prominent on the right side. There are calcifications of the coronary arteries. Normal mediastinum. Normal hilar regions. Normal unenhanced pulmonary arteries. Normal aorta arch and descending thoracic aorta. There are multi-level degenerative changes of the thoracic spine. There is no demonstrated abnormality of the visualized upper abdomen. CT/Chest WITH Contrast IMPRESSION: Bilateral apical pleural scarring. Bilateral pleural plaque calcification more prominent in the left hemithorax. Electronically Signed: Mehrdad Lynch MD at 14:21 EDT ,
[2023-12-31 09:23] LABS: CREATININE FINGERSTICK < 1.0 mg/dL (0.70-1.30); EGFR FINGERSTICK > 60.0000 mL/min (>60)
== END | disposition home or self-care (01) ==
LOC: CT 08:40
PROVIDERS: PCP Family Medicine; Referring Provider Internal Medicine Endocrinology, Diabetes & Metabolism; Visit Provider Internal Medicine Endocrinology, Diabetes & Metabolism
DX: E22.2 Syndrome of inappropriate secretion of antidiuretic hormone (principal)
CPT/HCPCS: 71260; Q9967; A4216

== ENCOUNTER → 2024-02-14 | Outpatient (CLI) | payer BC, SELFPAY ==
[2024-02-14 12:27] LABS: Erythrocyte Sedimentation Rate 18 mm/hr (0-20)
[2024-02-14 12:29] LABS: Absolute Lymphocyte Count 0.93 X10^3/uL (0.83-4.51); Absolute Neutrophil Count 4.3 X10^3/uL (2.0-7.7); Basophil# 0.01 X10^3/uL; Basophil% 0.2 % (0-1); Eosinophil# 0.08 X10^3/uL; Eosinophils% 1.4 % (0-5); Hematocrit 36.7 % (40-54); Hemoglobin 12.7 g/dL (13.0-16.5); Lymphocyte # 0.93 X10^3/ul (0.83-4.51); Lymphocyte % 15.9 % (19-41); Mean Corp Hgb Conc 34.6 g/dL (32-36); Mean Corpuscular Hgb 32.3 pg (27.0-32.0); Mean Corpuscular Volume 93.4 fL (80-94); Mean Platelet Vol. 9.6 fl (6.2-12.0); Monocyte# 0.48 X10^3/uL; Monocyte% 8.2 % (0-10); NRBC Flagged by Analyzer 0 % (0-5); Neutrophil # 4.33 X10^3/uL (2.7-7.7); Neutrophil % 73.8 % (47-70); Platelet Count 238 K/mm3 (150-450); RBC Distribution Width CV 12.2 % (11.6-14.6); RBC Distribution Width SD 42.2 fl (35.1-43.9); Red Blood Count 3.93 M/mm3 (4.6-6.2); White Blood Count 5.9 K/mm3 (4.4-11.0)
[2024-02-14 15:59] LABS: ALB/GLOB Ratio 0.9 RATIO (0.9-2.4); AST(SGOT) 16 U/L (15-37); Alanine Aminotransfer ALT/SGPT 20 U/L (16-61); Albumin, Serum 3.6 g/dL (3.2-5.0); Alkaline Phosphatase 77 U/L (45-117); Anion Gap 7 (5-15); BUN 15 mg/dL (7-18); BUN/Creat Ratio 18.6 RATIO (10-20); Calcium,Total 9.2 mg/dL (8.5-10.1); Chloride 97 mmol/L (98-107); Creatinine, Serum 0.81 mg/dL (0.70-1.30); EST Glomerular Filtration Rate 102 mL/min (>60); Est Glom Filt Rate - Afr Amer 124 mL/min (>60); Globulin 4.1 g/dL (2.2-4.2); Glucose 87 mg/dL (74-106); PSA,Total - Annual Screen 0.42 ng/mL (0.00-4.00); Potassium 4.4 mmol/L (3.5-5.1); Protein, Total 7.7 g/dL (6.4-8.2); Sodium Level 128 mmol/L (136-145); Thyroid Stim Hormone (TSH) 2.26 uIU/mL (0.358-3.74)
== END | disposition home or self-care (01) ==
LOC: MFPLAB 10:50
PROVIDERS: PCP Family Medicine; Visit Provider Family Medicine
DX: Z12.5 Encounter for screening for malignant neoplasm of prostate (principal); R63.4 Abnormal weight loss
CPT/HCPCS: 36415; 80053; 82533; 84153; 84443; 85025; 85652; 86140; G0103

== ENCOUNTER → 2024-03-24 | Outpatient (CLI) | payer BC, SELFPAY ==
--- NOTE | 2024-03-24 08:13 | CT_ITS ---
EXAM: CT ABDOMEN AND PELVIS WITH INTRAVENOUS CONTRAST CLINICAL INDICATION: Intra-abdominal and pelvic swelling, mass and lump, unspecified s TECHNIQUE: Helically acquired images were obtained of the abdomen and pelvis with intravenous contrast. This CT exam was performed using one or more of the following dose reduction techniques: automated exposure control, adjustment of the mA and/or kV according to patient size, and/or use of iterative reconstruction technique. CONTRAST: 100 cc Isovue-300 IV. With oral contrast. RADIATION DOSE: CTDIvol = 14.09 mGy, DLP = 634.82 mGy-cm COMPARISON: 04/05/2008 FINDINGS: LOWER THORAX: Small calcified pleural plaques are seen along the hemidiaphragms bilaterally likely related to asbestos exposure. Lung bases are clear. No cardiomegaly. No significant pericardial effusion. ABDOMEN: LIVER: Unremarkable. Homogeneous. No focal mass. GALLBLADDER AND BILE DUCTS: Unremarkable. No calcified gallstones. No gallbladder distention or wall edema. No intra- or extrahepatic biliary ductal dilation. PANCREAS: Unremarkable. No focal cystic or solid mass. SPLEEN: Unremarkable. Normal size without focal cystic or solid mass. ADRENALS: Unremarkable. No nodules. KIDNEYS AND URETERS: Unremarkable. Normal renal size and position. No hydronephrosis. STOMACH AND BOWEL: Scattered diverticula without diverticulitis. No stomach or bowel distention. PELVIS: APPENDIX: Normal appendix. BLADDER: Unremarkable. REPRODUCTIVE: Unremarkable as visualized. No mass. ABDOMEN and PELVIS: INTRAPERITONEAL SPACE: Unremarkable. No ascites or other fluid collection. No free air. BONES/JOINTS: Unremarkable. No suspicious lytic or blastic abnormality. SOFT TISSUES: Unremarkable. No discrete abdominal or pelvic wall hernia. VASCULATURE: Unremarkable. Abdominal aorta is non-dilated. LYMPH NODES: Unremarkable. No enlarged lymph nodes. CT/Abdomen/Pelvis WITH Contrast IMPRESSION: 1. No acute abdominal pelvic abnormality. 2. Small calcified pleural plaques are seen along the hemidiaphragms bilaterally likely related to asbestos exposure. 3. Scattered diverticula without diverticulitis. Electronically Signed: Diallo Valentine MD at 3:10 EDT ,
[2024-03-24 08:44] LABS: CREATININE FINGERSTICK < 1.0 mg/dL (0.70-1.30); EGFR FINGERSTICK > 60.0000 mL/min (>60)
== END | disposition home or self-care (01) ==
LOC: CT 08:09
PROVIDERS: PCP Family Medicine; Referring Provider Family Medicine; Visit Provider Family Medicine
DX: R19.00 Intra-abdominal and pelvic swelling, mass and lump, unspecified site (principal)
CPT/HCPCS: 74177; Q9967

== ENCOUNTER → 2024-04-03 | Outpatient (CLI) | payer BC, SELFPAY ==
[2024-04-03 12:32] LABS: Absolute Lymphocyte Count 0.78 X10^3/uL (0.83-4.51); Absolute Neutrophil Count 3.5 X10^3/uL (2.0-7.7); Basophil# 0.02 X10^3/uL; Basophil% 0.4 % (0-1); Eosinophil# 0.05 X10^3/uL; Hematocrit 35.9 % (40-54); Hemoglobin 12.5 g/dL (13.0-16.5); Lymphocyte # 0.78 X10^3/ul (0.83-4.51); Mean Corp Hgb Conc 34.8 g/dL (32-36); Mean Corpuscular Hgb 32.4 pg (27.0-32.0); Mean Platelet Vol. 8.9 fl (6.2-12.0); Monocyte# 0.49 X10^3/uL; NRBC Flagged by Analyzer 0 % (0-5); Neutrophil # 3.53 X10^3/uL (2.7-7.7); Neutrophil % 72.4 % (47-70); Platelet Count 267 K/mm3 (150-450); RBC Distribution Width CV 12.3 % (11.6-14.6); RBC Distribution Width SD 42.2 fl (35.1-43.9); Red Blood Count 3.86 M/mm3 (4.6-6.2); White Blood Count 4.9 K/mm3 (4.4-11.0)
[2024-04-03 12:45] LABS: Erythrocyte Sedimentation Rate 3 mm/hr (0-20)
[2024-04-03 13:40] LABS: ALB/GLOB Ratio 1.1 RATIO (0.9-2.4); AST(SGOT) 24 U/L (15-37); Alanine Aminotransfer ALT/SGPT 18 U/L (16-61); Albumin, Serum 3.7 g/dL (3.2-5.0); Alkaline Phosphatase 77 U/L (45-117); Anion Gap 9 (5-15); BUN 7 mg/dL (7-18); BUN/Creat Ratio 9.8 RATIO (10-20); CRP < 2.90 mg/L (0.0-3.0); Calcium,Total 9.2 mg/dL (8.5-10.1); Chloride 96 mmol/L (98-107); Creatinine, Serum 0.71 mg/dL (0.70-1.30); EST Glomerular Filtration Rate 119 mL/min (>60); Est Glom Filt Rate - Afr Amer 143 mL/min (>60); Globulin 3.5 g/dL (2.2-4.2); Glucose 89 mg/dL (74-106); PSA,Total - Annual Screen 0.39 ng/mL (0.00-4.00); Potassium 4.5 mmol/L (3.5-5.1); Protein, Total 7.2 g/dL (6.4-8.2); Sodium Level 128 mmol/L (136-145)
== END | disposition home or self-care (01) ==
LOC: MTLAB 08:34
PROVIDERS: PCP Family Medicine; Referring Provider Family Medicine; Visit Provider Family Medicine
DX: R63.4 Abnormal weight loss (principal); Z12.5 Encounter for screening for malignant neoplasm of prostate
CPT/HCPCS: 36415; 80053; 82533; 84153; 84443; 85025; 85652; 86140; G0103

== ENCOUNTER 2024-10-10 09:46 | Outpatient (CLI) | payer BC, SELFPAY ==
[2024-10-10 13:03] LABS: Hematocrit 35.2 % (40-54); Hemoglobin 12.6 g/dL (13.0-16.5); Mean Corp Hgb Conc 35.8 g/dL (32-36); Mean Corpuscular Hgb 33.9 pg (27.0-32.0); Mean Corpuscular Volume 94.6 fL (80-94); Mean Platelet Vol. 9.1 fl (6.2-12.0); Platelet Count 235 K/mm3 (150-450); RBC Distribution Width CV 11.9 % (11.6-14.6); RBC Distribution Width SD 41.8 fl (35.1-43.9); Red Blood Count 3.72 M/mm3 (4.6-6.2); White Blood Count 7.3 K/mm3 (4.4-11.0)
[2024-10-10 19:01] LABS: ALB/GLOB Ratio 1.3 RATIO (0.9-2.4); AST(SGOT) 33 U/L (<=37); Alanine Aminotransfer ALT/SGPT 23 U/L (<=46); Albumin, Serum 4.3 g/dL (3.4-4.8); Alkaline Phosphatase 86 U/L (40-129); Anion Gap 13 (5-15); BUN 10 mg/dL (4-19); BUN/Creat Ratio 14.6 RATIO (10-20); Calcium 9.4 mg/dL (7.6-11.0); Carbon Dioxide 22.2 mmol/L (22.0-29.0); Chloride 91 mmol/L (96-108); Creatinine, Serum 0.7 mg/dL (0.8-1.3); EST Glomerular Filtration Rate 104 (>60); Globulin 3.4 g/dL (2.2-4.2); Glucose 83 mg/dL (70-99); Potassium 4.5 mmol/L (3.3-5.1); Protein, Total 7.6 g/dL (5.9-8.4); Sodium Level 126 mmol/L (133-145)
[2024-10-10 20:11] LABS: Osmolality, Serum 259 mOsm/KG (280-301)
[2024-10-10 23:57] LABS: Cholesterol 179 mg/dL (<=200); High Density Lipoprotein 62 mg/dL; Triglycerides 63 mg/dL; Very Low Density Lipoprotein 13 mg/dL (5-40)
== END 2024-10-10 23:59 | disposition home or self-care (01) ==
LOC: MTLAB 09:47
PROVIDERS: PCP Family Medicine; Referring Provider Family Medicine; Visit Provider Family Medicine
DX: E87.1 Hypo-osmolality and hyponatremia (principal); F10.10 Alcohol abuse, uncomplicated; Z13.220 Encounter for screening for lipoid disorders
CPT/HCPCS: 36415; 80053; 80061; 83930; 85027

== ENCOUNTER → 2024-11-22 | Outpatient (CLI) | payer BC, SELFPAY ==
[2024-11-22 11:02] LABS: Anion Gap 12 (5-15); BUN 11 mg/dL (4-19); Calcium,Total 9.4 mg/dL (7.6-11.0); Carbon Dioxide 22.3 mmol/L (21.0-32.0); Chloride 90 mmol/L (98-108); Creatinine, Serum 0.78 mg/dL (0.70-1.20); EST Glomerular Filtration Rate 100 (>60); Glucose 97 mg/dL (70-99); Potassium 4.7 mmol/L (3.3-5.1); Sodium Level 124 mmol/L (133-145)
== END | disposition home or self-care (01) ==
LOC: MFPLAB 08:49
PROVIDERS: PCP Family Medicine; Referring Provider Family Medicine; Visit Provider Family Medicine
DX: E87.1 Hypo-osmolality and hyponatremia (principal)
CPT/HCPCS: 36415; 80048

== ENCOUNTER → 2025-04-23 | Outpatient (CLI) | payer MEDICARE, SELFPAY ==
[2025-04-23 13:04] LABS: Anion Gap 11 (5-15); BUN 15 mg/dL (4-19); BUN/Creat Ratio 19.9 RATIO (10-20); Calcium,Total 9.3 mg/dL (7.6-11.0); Carbon Dioxide 22.2 mmol/L (21.0-32.0); Chloride 93 mmol/L (98-108); Glucose 90 mg/dL (70-99); PSA,Total - Annual Screen 0.21 ng/mL (0.02-4.00); Potassium 4.7 mmol/L (3.3-5.1)
== END | disposition home or self-care (01) ==
PROVIDERS: PCP Family Medicine
DX: Z12.5 Encounter for screening for malignant neoplasm of prostate (principal); E87.1 Hypo-osmolality and hyponatremia
CPT/HCPCS: 36415; 80048; 84153; G0103